=== PATIENT | male | born 1960 | race Two or more races ===

== ENCOUNTER 2016-08-24 06:43 | Emergency (ER) | payer SELFPAY ==
[~2016-08-24] VITALS: Ht 167.6 cm; Wt 72.6 kg
[2016-08-24 06:43] VITALS: BP 154/100
[2016-08-24 07:53] VITALS: BP 138/82
[2016-08-24] MEDS ORDERED: IBUPROFEN600 MG ORAL (07:54)
[2016-08-24] MEDS ORDERED: NORCO 5-325 TA1 EACH ORAL (07:54)
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
== END 2016-08-24 08:10 | disposition home or self-care (01) ==
LOC: EDBD 06:43 → EMR 07:28 → EDBD 07:28 → EMR 08:10
DX: S46.911A Strain of unspecified muscle, fascia and tendon at shoulder and upper arm level, right arm, initial encounter (principal); S40.812A Abrasion of left upper arm, initial encounter; V43.52XA Car driver injured in collision with other type car in traffic accident, initial encounter; Y92.410 Unspecified street and highway as the place of occurrence of the external cause
CPT/HCPCS: 99284